=== PATIENT | male | born 1945 | race Caucasian/White ===

== ENCOUNTER → 2017-08-14 | Outpatient (CLI) | payer OTHER ==
[2017-08-14 13:59] LABS: MANUAL MICROSCOPIC REQUIRED? YES; URINE APPEARANCE CLEAR (CLEAR); URINE BILIRUBIN NEG (NEG); URINE COLOR YELLOW; URINE NITRITE NEG (NEG); URINE SPECIFIC GRAVITY 1.015 (1.000-1.030); UROBILINOGEN NEG (NEG)
[2017-08-14 14:13] LABS: REVIEW REQ? NO
[2017-08-14 14:23] LABS: BASO % 0.1 %; BASO ABS # 0.01 K/uL (0-0.2); EOS % 0.3 %; HEMATOCRIT 33.3 % (42-52); IG% 0.1 %; LYMPH % 6.1 %; LYMPH ABS # 0.55 K/uL (1.2-3.4); MEAN CELL VOLUME 94.9 fL (80-100); MEAN CORPUSCULAR HEMOGLOBIN 31.1 pg (25-34); MEAN PLATELET VOLUME 12.3 fL (7.4-10.4); NEUT % 85.4 %; PLATELET COUNT 158 K/uL (130-400); RED BLOOD COUNT 3.51 M/uL (4.7-6.1); WHITE BLOOD COUNT 9.07 K/uL (4.8-10.8)
[2017-08-14 14:32] LABS: URINE SPERM PRESENT (NONE PRSENT)
[2017-08-14 14:34] LABS: COMPLETE YES; MEAN CORPUSCULAR HGB CONC 32.7 g/dl (32-36)
[2017-08-14 14:34] LABS: URINE WBC >30 /hpf (0-5)
[2017-08-14 14:36] LABS: URINE BACTERIA NEG (NEG); URINE RBC >30 /hpf (0-4)
[2017-08-14 15:03] LABS: ALKALINE PHOSPHATASE 67 U/L (45-117); ALT/SGPT 20 U/L (12-78); AST/SGOT 10 U/L (15-37); BLOOD UREA NITROGEN 110 mg/dl (7-18); BUN/CREATININE RATIO 12.1 (10-20); CALCIUM 9.5 mg/dl (8.5-10.1); CARBON DIOXIDE 15 mmol/L (21-32); CHLORIDE 107 mmol/L (98-107); GLUCOSE 118 mg/dl (70-99); POTASSIUM 4.9 mmol/L (3.5-5.1); SODIUM 136 mmol/L (136-145)
== END | disposition home or self-care (01) ==
LOC: C.LABMFLN 12:02
PROVIDERS: ATTEND Family Medicine
DX: N18.6 End stage renal disease (principal); K59.00 Constipation, unspecified; R10.30 Lower abdominal pain, unspecified

== ENCOUNTER → 2017-09-22 | Outpatient (CLI) | payer OTHER ==
[2017-09-22 13:25] LABS: ESTIMATED AVERAGE GLUCOSE 103 mg/dl; HA1C FLAG Normal (Normal)
[2017-09-22 13:48] LABS: CHOLESTEROL/HDL RATIO 3.5
== END | disposition home or self-care (01) ==
LOC: C.LABMFLN 09:37
PROVIDERS: ATTEND Family Medicine
DX: R73.03 Prediabetes (principal); I10 Essential (primary) hypertension; E78.5 Hyperlipidemia, unspecified; I25.10 Atherosclerotic heart disease of native coronary artery without angina pectoris

== ENCOUNTER → 2018-03-16 | Outpatient (CLI) | payer OTHER ==
[2018-03-16 13:23] LABS: HEMOGLOBIN A1C 5.9 % (4.5-5.6)
== END | disposition home or self-care (01) ==
LOC: C.LABMFLN 08:39
PROVIDERS: ATTEND Family Medicine
DX: N18.6 End stage renal disease (principal); R73.03 Prediabetes; I12.0 Hypertensive chronic kidney disease with stage 5 chronic kidney disease or end stage renal disease; E78.5 Hyperlipidemia, unspecified; I25.10 Atherosclerotic heart disease of native coronary artery without angina pectoris